=== PATIENT | female | born 1995 | race Caucasian/White ===

== ENCOUNTER 2025-05-05 13:49 | Outpatient (CLI) | payer BC | END 2025-05-05 13:50 | disposition home or self-care (01) | LOC: BICRAD 13:49 | PROVIDERS: ATTEND Family Medicine | DX: M89.9 Disorder of bone, unspecified (principal) | CPT/HCPCS: 70260 ==

== ENCOUNTER 2025-05-13 12:26 | Outpatient (CLI) | payer BC | END 2025-05-13 12:27 | disposition home or self-care (01) | LOC: SCSMRI 12:26 | PROVIDERS: ATTEND Family Medicine | DX: M89.8X9 Other specified disorders of bone, unspecified site (principal) | CPT/HCPCS: 70551; 76376 ==

== ENCOUNTER 2025-06-09 08:54 | Outpatient (CLI) | payer BC ==
[2025-06-09 09:46] LABS: BHCG - Serum Negative (NEGATIVE); Pregs Control Background? CLEAR/WHITE (CLR/WHITE); Pregs Control Bar Appear? YES (CONTROL BAR)
[2025-06-09] MEDS ORDERED: Iopamidol 370 76% 100 ML VIAL ONE (10:55)
== END 2025-06-09 08:55 | disposition home or self-care (01) ==
LOC: CT 08:54
PROVIDERS: ATTEND Family Medicine
DX: R90.89 Other abnormal findings on diagnostic imaging of central nervous system (principal); M79.89 Other specified soft tissue disorders
CPT/HCPCS: 36415; 70496; 84703; Q9967